=== PATIENT | female | born 1955 | race Caucasian/White ===

== ENCOUNTER 2016-11-23 16:17 | Emergency (ER) | payer OTHER ==
--- NOTE | 2016-11-23 17:39 | DIAGNOSTIC IMAGING REPORT ---
PROCEDURE: US VENOUS - RIGHT EXT INDICATION: SWELLING TECHNIQUE: Duplex sonography of the deep venous system in the right lower extremity was performed. Compression and augmentation techniques were used. COMPARISON: None. FINDINGS: Normal compression of the common femoral, superficial femoral, popliteal, peroneal, and posterior tibial veins. Normal augmentation. There is almost complete occlusion of the greater saphenous vein in the calf with little flow seen. IMPRESSION: 1. No evidence of a right lower extremity DVT 2. Superficial phlebitis of the greater saphenous vein in the calf
--- NOTE | 2016-11-23 18:56 | ED NURSING NOTES ---
Clinical Report - Nurses Merged With [facility] [place] [address] 11/23/2016 16:18 [id number] TRI[facility] Triage time 16:32. Acuity: LEVEL 3. Chief Complaint: RIGHT LOWER EXTREMITY SWELLING. 16:38 11/23/16. Alert. No acute distress. SEPSIS SCREEN: Sepsis Screen. Negative (no infection suspected/documented). STEFANIE COMA SCORE: Stefanie Coma Scale: 15- eyes open spontaneously (4); best verbal response- oriented x 4 (5); best motor response- obeys commands (6). --16:38 Jenna De La Vega R.N. 16:38 11/23/16. BP: 181/87. HR: 100. RR: 16. O2 saturation: 100%. Temp: 98.2 F. Pain level now 08/18. --16:38 Jenna De La Vega R.N. Weight: 72.5 kg stated. Height/Length: 61 inches Per Patient. BMI: 30.2. --16:36 Jenna De La Vega R.N. Medications None. --16:38 Jenna De La Vega R.N. Allergies No Known Drug Allergy. --16:38 Jenna De La Vega R.N. History Arrived by private vehicle. Historian: patient. Accompanied by family. Primary physician (robert). ( RLE swelling and aching x 2-3 weeks.). No injury occurred. This occurred (3 weeks ago). 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 SOCIAL HX: Heavy tobacco smoker (cigarette)- 1 pack per day. History of drug use: marijuana. No alcohol use. ABUSE ASSESSMENT: Abuse assessment: The patient was asked "Do you feel safe in your home?". No report of abuse. FALL RISK ASSESSMENT: Fall risk assessment completed. No fall risk identified. NUTRITIONAL RISK ASSESSMENT: The nutritional risk assessment revealed no deficiencies. FUNCTIONAL ASSESSMENT: Functional assessment: no impairments noted. LEARNING NEEDS ASSESSMENT: The learning needs assessment revealed no barriers. SKIN INTEGRITY ASSESSMENT: Skin integrity risk assessment completed. No skin integrity risk identified. --16:38 Jenna De La Vega R.N. PROBLEMS: no known problems. ADDITIONAL SURGERIES: no known surgeries. Interventions ID band on patient. To treatment room. --16:38 Jenna De La Vega R.N. PHYSICAL ASSESSMENT GENERAL / NEURO / PSYCH: Oriented X 4. Alert. Appears in no acute distress. EXTREMITIES: Extremity pulses are within normal limits. Neuro-vascular status intact to the extremity. Right leg: swelling. No erythema. Right foot: swelling. No erythema. SKIN: Skin is warm and dry. --16:39 Jenna De La Vega R.N. NURSING PROGRESS NOTES 16:39 11/23/16. The plan of care for this patient has been created. Extremity elevated. Patient gowned. Call light placed in reach. Bed placed in lowest position. Brakes of bed on. Patient ready for evaluation- chart flagged. --16:39 Jenna De La Vega R.N. ( ultrasound at bedside). --16:49 Jenna De La Vega R.N. Care transferred and report received (from Christy, JACQUE). --17:55 Andie Nova R.N. 18:39 11/23/2016 Lovenox (Enoxaparin Sodium) Subcutaneous 80 mg given. Given in the right abdomen. Allergies verified and confirmed 5 rights. --18:41 Jenna De La Vega R.N. ( pt educated on lovenox injections including subQ administration, sharps disposal, primary care follow up, bleeding precautions, site rotation, side effects, contraindications, and sx for which to be seen. Pt able to verbalize understanding and demonstrate appropriate sites for injection). --18:42 Jenna De La Vega R.N. 19:05 11/23/2016 Warfarin Sodium PO Tablets 10 mg given. Allergies verified and confirmed 5 rights. --19:15 Jenna De La Vega R.N. 19:00. ( extensive pt teaching on warfarin dosing, precautions and administration in conjunction with lovenox. Pt educated further on bleeding precautions, bleeding risks, INR monitoring, dietary restrictions and close follow up with PCP. Pt verbalizes understanding.). --19:20 Jenna De La Vega R.N. DISPOSITION / DISCHARGE 19:15. Departure time: 1914. Condition at departure: unchanged and stable. No learning barriers present. Discharge instructions provided and reviewed with the patient and spouse. Reviewed medication(s) side effects, precautions, dosing and course information. Prescription(s) given to the patient. Follow up contact number Ramila. Patient verbalized understanding. Written instructions provided in Italian. The patient was discharged by the physician social service assistant. She was discharged home and accompanied by spouse. She left the Emergency Department ambulatory and via private vehicle. Spouse driving. --19:21 Jenna De La Vega R.N. 19:20 11/23/16. BP: 151/86. HR: 84. RR: 16. O2 saturation: 97% on room air. Pain level now 0/10. --19:21 Jenna De La Vega R.N. Locked/Released at 11/28/2016 7:22 by Jenna De La Vega R.N.
--- NOTE | 2016-11-23 18:56 | ED CLINICAL REPORT ---
Clinical Report - Physicians/Mid Levels [facility] [address] [place] [address] 11/23/2016 16:18 [id number] Time Seen: 16:45 Apr 2016. Arrived- By private vehicle. Historian- patient. HISTORY OF PRESENT ILLNESS Chief Complaint: Injury to right leg and right knee. The injury happened just prior to arrival. Patient is experiencing mild pain. Patient denies injury to the head or neck. (patient reports pain and swelling to the right lower extremity over the last 2 weeks. Pain is independent of movement. Reports knee injury about 2 years previously. Reports some swelling to the posterior aspect of the knee, however extends into the calf. Denies history of DVT, prolonged recent immobilization, or surgery.). REVIEW OF SYSTEMS The patient complains of pain on weight bearing. All systems otherwise negative, except as recorded above. PAST HISTORY The patient has not had a prior injury to the same area. SOCIAL HISTORY Never smoker. No alcohol use or drug use. ADDITIONAL NOTES The nursing notes have been reviewed. PHYSICAL EXAM Vital Signs: 11/23/2016 16:38 BP: 181/87. HR: 100. RR: 16. O2 saturation: 100%. Temp: 98.2 F. Appearance: Alert. No acute distress. but apparent distress. Head: Head atraumatic. ENT: Ears normal. Nose normal. CVS: Normal heart rate and rhythm. Heart sounds normal. Respiratory: No respiratory distress. Breath sounds normal. No decreased air movement or chest wall injury. Skin: Skin intact. Skin warm. Normal skin color. Extremities: Right knee: mild tenderness located in the posterior knee. (Posteriorly.). No ecchymosis or deformity. Gait: Normal gait. Neuro, Vascular and Tendons: Sensation intact. Motor intact. Neuro: Oriented X 3. LABS, X-RAYS, AND EKG Laboratory Tests: PT with INR: (EMILIE: 11/23/2016 17:30) ( MsgRcvd 11/23/2016 18:43) Final results Test Result Flag Units (Reference) INR 1.0 (0.8-1.2) Low Intensity Therapy: INR 1.5-2.0 PT range 18.5-23.1Mod.Intensity Therapy: INR 2.0-3.0 PT range 23.1-31.5High Intensity Therapy: INR 2.5-3.5 PT range 27.4-35.5High Intensity Therapy 2: INR 3.0-4.0 PT range 31.5-39.3 APTT 30 SECONDS (24-34) . Note - Tests: (US VENOUS:IMPRESSION: 1. No evidence of a right lower extremity DVT 2. Superficial phlebitis of the greater saphenous vein in the calf Electronically Final signed by:Navi Sanchez MD 11/23/2016 5:39:46 PM). PROGRESS AND PROCEDURES Course of Care: concern of this occlusion becoming a DVT, this patient was treated, discussed care with Dr. Sanford, the emergency department. Patient to have close follow-up. Pt understands plan and agrees. Given lovenox/ warfarin in the ER. Patient is stable. Symptoms better. Patient/family counseled. Disposition: Discharged. CLINICAL IMPRESSION Deep venous thrombosis. Superficial Phlebitis of Great Saphenous Vein Complete Occlusion. INSTRUCTIONS (Have INR (Lab for warfarin) rechecked in 3-5 days Follow up please [facility]: Address: [address] [place] [address] [place] [id number] [address] Shine [address] [place], [place] [id number] [phone]). Prescription Medications: Lovenox 80 mg SQ. Administer every 12 hours for 7 days. Dispense fourteen (14) pre-filled syringes. No refills. Warfarin 2.5 mg: take 3 pills on the 18th, take 2 pills on the , take 2 pills on the , take 2 on the . HAVE INR re-checked. Dispense 10 pills. Understanding of the discharge instructions verbalized by patient. Follow-up with: Lola Mcgrath MD, Family Practice, , [facility], [address] [place] [address] Follow up. Call for the next available appointment. (Electronically signed by Rosalinda Pratt P.ASelene 11/23/2016 19:23)
--- NOTE | 2016-11-23 18:56 | ED ORDER SUMMARY ---
..... Patient: MARLON URRUTIA OrderSheet [facility] VisitID: [id number] [place] [address] 61y, F Registration Date/Time: 11/23/2016 ORDER SHEET Weight: 72.5 kg (stated) Allergies: No Known Drug Allergy GENERAL ORDERS: US Venous Right Urgent (16:38 11/23/2016 EKoroleva P.A.-C) (Ack 16:45 PWeiler ER Tech1) (17:54 KWilliams R.N.) PT with INR Urgent (17:24 11/23/2016 EKoroleva P.A.-C) (Ack 17:25 PWeiler ER Tech1) (17:32 PWeiler ER Tech1) PTT Urgent (17:24 11/23/2016 EKoroleva P.A.-C) (Ack 17:25 PWeiler ER Tech1) (17:32 PWeiler ER Tech1) MEDICATION ORDERS: Lovenox Subcut 80 mg (with teaching please) (18:11 11/23/2016 EKoroleva P.A.-C) (Ack 18:19 HKone R.N.) (18:41 KWilliams R.N.) - (warfarin 10 mg po now) (18:53 11/23/2016 EKoroleva P.A.-C) (19:15 KWilliams R.N.) IV FLUIDS: ORDER SHEET NOTES: [Electronically signed by Rosalinda PrattAMahi-C (19:23 11/23/2016)] [Electronically signed by Jenna De La Vega R.N. (07:22 11/28/2016)] [Electronically locked/signed by Jenna De La Vega R.N. (07:22 11/28/2016)]
--- NOTE | 2016-11-23 18:56 | ED CLINICAL REPORT ---
Clinical Report - Physicians/Mid Levels [facility] [address] [place] [address] 11/23/2016 16:18 [id number] Time Seen: 16:45 Apr 2016. Arrived- By private vehicle. Historian- patient. HISTORY OF PRESENT ILLNESS Chief Complaint: Injury to right leg and right knee. The injury happened just prior to arrival. Patient is experiencing mild pain. Patient denies injury to the head or neck. (patient reports pain and swelling to the right lower extremity over the last 2 weeks. Pain is independent of movement. Reports knee injury about 2 years previously. Reports some swelling to the posterior aspect of the knee, however extends into the calf. Denies history of DVT, prolonged recent immobilization, or surgery.). REVIEW OF SYSTEMS The patient complains of pain on weight bearing. All systems otherwise negative, except as recorded above. PAST HISTORY The patient has not had a prior injury to the same area. SOCIAL HISTORY Never smoker. No alcohol use or drug use. ADDITIONAL NOTES The nursing notes have been reviewed. PHYSICAL EXAM Vital Signs: 11/23/2016 16:38 BP: 181/87. HR: 100. RR: 16. O2 saturation: 100%. Temp: 98.2 F. Appearance: Alert. No acute distress. but apparent distress. Head: Head atraumatic. ENT: Ears normal. Nose normal. CVS: Normal heart rate and rhythm. Heart sounds normal. Respiratory: No respiratory distress. Breath sounds normal. No decreased air movement or chest wall injury. Skin: Skin intact. Skin warm. Normal skin color. Extremities: Right knee: mild tenderness located in the posterior knee. (Posteriorly.). No ecchymosis or deformity. Gait: Normal gait. Neuro, Vascular and Tendons: Sensation intact. Motor intact. Neuro: Oriented X 3. LABS, X-RAYS, AND EKG Laboratory Tests: PT with INR: (EMILIE: 11/23/2016 17:30) ( MsgRcvd 11/23/2016 18:43) Final results Test Result Flag Units (Reference) INR 1.0 (0.8-1.2) Low Intensity Therapy: INR 1.5-2.0 PT range 18.5-23.1Mod.Intensity Therapy: INR 2.0-3.0 PT range 23.1-31.5High Intensity Therapy: INR 2.5-3.5 PT range 27.4-35.5High Intensity Therapy 2: INR 3.0-4.0 PT range 31.5-39.3 APTT 30 SECONDS (24-34) . Note - Tests: (US VENOUS:IMPRESSION: 1. No evidence of a right lower extremity DVT 2. Superficial phlebitis of the greater saphenous vein in the calf Electronically Final signed by:Navi Sanchez MD 11/23/2016 5:39:46 PM). PROGRESS AND PROCEDURES Course of Care: concern of this occlusion becoming a DVT, this patient was treated, discussed care with Dr. Sanford, the emergency department. Patient to have close follow-up. Pt understands plan and agrees. Given lovenox/ warfarin in the ER. Patient is stable. Symptoms better. Patient/family counseled. Disposition: Discharged. CLINICAL IMPRESSION Deep venous thrombosis. Superficial Phlebitis of Great Saphenous Vein Complete Occlusion. INSTRUCTIONS (Have INR (Lab for warfarin) rechecked in 3-5 days Follow up please [facility]: Address: [address] [place] [address] [place] [id number] [address] Shine [address] [place], [place] [id number] [phone]). Prescription Medications: Lovenox 80 mg SQ. Administer every 12 hours for 7 days. Dispense fourteen (14) pre-filled syringes. No refills. Warfarin 2.5 mg: take 3 pills on the 18th, take 2 pills on the , take 2 pills on the , take 2 on the . HAVE INR re-checked. Dispense 10 pills. Understanding of the discharge instructions verbalized by patient. Follow-up with: Lola Mcgrath MD, Family Practice, , [facility], [address] [place] [address] Follow up. Call for the next available appointment. (Electronically signed by Rosalinda Pratt P.ASelene 11/23/2016 19:23)
--- NOTE | 2016-11-23 18:56 | ED ORDER SUMMARY ---
..... Patient: MARLON URRUTIA OrderSheet [facility] VisitID: [id number] [place] [address] 61y, F Registration Date/Time: 11/23/2016 ORDER SHEET Weight: 72.5 kg (stated) Allergies: No Known Drug Allergy GENERAL ORDERS: US Venous Right Urgent (16:38 11/23/2016 EKoroleva P.A.-C) (Ack 16:45 PWeiler ER Tech1) (17:54 KWilliams R.N.) PT with INR Urgent (17:24 11/23/2016 EKoroleva P.A.-C) (Ack 17:25 PWeiler ER Tech1) (17:32 PWeiler ER Tech1) PTT Urgent (17:24 11/23/2016 EKoroleva P.A.-C) (Ack 17:25 PWeiler ER Tech1) (17:32 PWeiler ER Tech1) MEDICATION ORDERS: Lovenox Subcut 80 mg (with teaching please) (18:11 11/23/2016 EKoroleva P.A.-C) (Ack 18:19 HKone R.N.) (18:41 KWilliams R.N.) - (warfarin 10 mg po now) (18:53 11/23/2016 EKoroleva P.A.-C) (19:15 KWilliams R.N.) IV FLUIDS: ORDER SHEET NOTES: [Electronically signed by Rosalinda PrattAMahi-C (19:23 11/23/2016)] [Electronically signed by Jenna De La Vega R.N. (07:22 11/28/2016)] [Electronically locked/signed by Jenna De La Vega R.N. (07:22 11/28/2016)]
--- NOTE | 2016-11-23 18:56 | ED NURSING NOTES ---
Clinical Report - Nurses [facility] [place] [address] 11/23/2016 16:18 [id number] TRIAGE Triage time 16:32. Acuity: LEVEL 3. Chief Complaint: RIGHT LOWER EXTREMITY SWELLING. 16:38 11/23/16. Alert. No acute distress. SEPSIS SCREEN: Sepsis Screen. Negative (no infection suspected/documented). STEFANIE COMA SCORE: Stefanie Coma Scale: 15- eyes open spontaneously (4); best verbal response- oriented x 4 (5); best motor response- obeys commands (6). --16:38 Jenna De La Vega R.N. 16:38 11/23/16. BP: 181/87. HR: 100. RR: 16. O2 saturation: 100%. Temp: 98.2 F. Pain level now 08/18. --16:38 Jenna De La Vega R.N. Weight: 72.5 kg stated. Height/Length: 61 inches Per Patient. BMI: 30.2. --16:36 Jenna De La Vega R.N. Medications None. --16:38 Jenna De La Vega R.N. Allergies No Known Drug Allergy. --16:38 Jenna De La Vega R.N. History Arrived by private vehicle. Historian: patient. Accompanied by family. Primary physician (robert). ( RLE swelling and aching x 2-3 weeks.). No injury occurred. This occurred (3 weeks ago). 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 SOCIAL HX: Heavy tobacco smoker (cigarette)- 1 pack per day. History of drug use: marijuana. No alcohol use. ABUSE ASSESSMENT: Abuse assessment: The patient was asked "Do you feel safe in your home?". No report of abuse. FALL RISK ASSESSMENT: Fall risk assessment completed. No fall risk identified. NUTRITIONAL RISK ASSESSMENT: The nutritional risk assessment revealed no deficiencies. FUNCTIONAL ASSESSMENT: Functional assessment: no impairments noted. LEARNING NEEDS ASSESSMENT: The learning needs assessment revealed no barriers. SKIN INTEGRITY ASSESSMENT: Skin integrity risk assessment completed. No skin integrity risk identified. --16:38 Jenna De La Vega R.N. PROBLEMS: no known problems. ADDITIONAL SURGERIES: no known surgeries. Interventions ID band on patient. To treatment room. --16:38 Jenna De La Vega R.N. PHYSICAL ASSESSMENT GENERAL / NEURO / PSYCH: Oriented X 4. Alert. Appears in no acute distress. EXTREMITIES: Extremity pulses are within normal limits. Neuro-vascular status intact to the extremity. Right leg: swelling. No erythema. Right foot: swelling. No erythema. SKIN: Skin is warm and dry. --16:39 Jenna De La Vega R.N. NURSING PROGRESS NOTES 16:39 11/23/16. The plan of care for this patient has been created. Extremity elevated. Patient gowned. Call light placed in reach. Bed placed in lowest position. Brakes of bed on. Patient ready for evaluation- chart flagged. --16:39 Jenna De La Vega R.N. ( ultrasound at bedside). --16:49 Jenna De La Vega R.N. Care transferred and report received (from Christy, JACQUE). --17:55 Andie Nova R.N. 18:39 11/23/2016 Lovenox (Enoxaparin Sodium) Subcutaneous 80 mg given. Given in the right abdomen. Allergies verified and confirmed 5 rights. --18:41 Jenna De La Vega R.N. ( pt educated on lovenox injections including subQ administration, sharps disposal, primary care follow up, bleeding precautions, site rotation, side effects, contraindications, and sx for which to be seen. Pt able to verbalize understanding and demonstrate appropriate sites for injection). --18:42 Jenna De La Vega R.N. 19:05 11/23/2016 Warfarin Sodium PO Tablets 10 mg given. Allergies verified and confirmed 5 rights. --19:15 Jenna De La Vega R.N. 19:00. ( extensive pt teaching on warfarin dosing, precautions and administration in conjunction with lovenox. Pt educated further on bleeding precautions, bleeding risks, INR monitoring, dietary restrictions and close follow up with PCP. Pt verbalizes understanding.). --19:20 Jenna De La Vega R.N. DISPOSITION / DISCHARGE 19:15. Departure time: 1914. Condition at departure: unchanged and stable. No learning barriers present. Discharge instructions provided and reviewed with the patient and spouse. Reviewed medication(s) side effects, precautions, dosing and course information. Prescription(s) given to the patient. Follow up contact number Ramila. Patient verbalized understanding. Written instructions provided in Czech. The patient was discharged by the physician prosthetic assistant. She was discharged home and accompanied by spouse. She left the Emergency Department ambulatory and via private vehicle. Spouse driving. --19:21 Jenna De La Vega R.N. 19:20 11/23/16. BP: 151/86. HR: 84. RR: 16. O2 saturation: 97% on room air. Pain level now 0/10. --19:21 Jenna De La Vega R.N. Locked/Released at 11/28/2016 7:22 by Jenna De La Vega R.N.
--- NOTE | 2016-11-28 07:23 | ED MED RECONCILIATION SUMMARY ---
Patient: MARLON URRUTIA Medication Reconciliation Report Located [facility] VisitID: [id number] [place] [address] 61y, F Registration Date/Time: 11/23/2016 Weight: 72.5 kg Height/Length: 61 in. BMI: 30.2 ALLERGIES: No Known Drug Allergy The patient's Home Medications are listed below: NONE. The source(s) of the original Home Medication information: Not obtained. The following Medications were given to the patient in the Emergency Department: Lovenox [Subcutaneous] Subcutaneous 80 mg, administered: 11/23/2016 6:39:00 PM Warfarin Sodium [PO] PO 10 mg, administered: 11/23/2016 7:05:00 PM The following Medications were prescribed to the patient: Warfarin 2.5 mg: take 3 pills on the 18th, take 2 pills on the , take 2 pills on the , take 2 on the . HAVE INR re-checked. Dispense 10 pills. -- Rosalinda Pratt, P.A.-Da Lovenox 80 mg SQ. Administer every 12 hours for 7 days. Dispense fourteen (14) pre-filled syringes. No refills. -- Rosalinda Pratt, P.A.-C
--- NOTE | 2016-11-28 07:23 | ED MED RECONCILIATION SUMMARY ---
Patient: MARLON URRUTIA Medication Reconciliation Report VisitID: [id number] [place] [address] 61y, F Registration Date/Time: 11/23/2016 Weight: 72.5 kg Height/Length: 61 in. BMI: 30.2 ALLERGIES: No Known Drug Allergy The patient's Home Medications are listed below: NONE. The source(s) of the original Home Medication information: Not obtained. The following Medications were given to the patient in the Emergency Department: Lovenox [Subcutaneous] Subcutaneous 80 mg, administered: 11/23/2016 6:39:00 PM Warfarin Sodium [PO] PO 10 mg, administered: 11/23/2016 7:05:00 PM The following Medications were prescribed to the patient: Warfarin 2.5 mg: take 3 pills on the 18th, take 2 pills on the , take 2 pills on the , take 2 on the . HAVE INR re-checked. Dispense 10 pills. -- Rosalinda Pratt, P.A.-Da Lovenox 80 mg SQ. Administer every 12 hours for 7 days. Dispense fourteen (14) pre-filled syringes. No refills. -- Rosalinda Pratt, P.A.-C
--- NOTE | 2016-11-28 07:23 | ED DISCHARGE INSTRUCTIONS ---
Patient: MARLON URRUTIA General Instructions [facility] VisitID: [id number] [address], [place] [address] 61y, F Registration Date/Time: 11/23/2016 Deep venous thrombosis. Superficial Phlebitis of Great Saphenous Vein Complete Occlusion. INSTRUCTIONS (Have INR (Lab for warfarin) rechecked in 3-5 days Follow up please [facility]: Address: [address], [place] [id number] [address]. Shine [address] [place] [address] [phone] Prescription Medications: Lovenox 80 mg SQ. Administer every 12 hours for 7 days. Dispense fourteen (14) pre-filled syringes. No refills. Warfarin 2.5 mg: take 3 pills on the 18th, take 2 pills on the 19th, take 2 pills on the , take 2 on the . HAVE INR re-checked. Dispense 10 pills. Understanding of the discharge instructions verbalized by patient. Follow-up with: Lola Mcgrath MD, Family Practice, , [facility], [address] [place] [address] Follow up. Call for the next available appointment. (Electronically signed by Rosalinda Pratt P.A.-C 11/23/2016 19:23)
--- NOTE | 2016-11-28 07:23 | ED DISCHARGE INSTRUCTIONS ---
Patient: MARLON URRUTIA General Instructions VisitID: [id number] [address], [place] [address] 61y, F Registration Date/Time: 11/23/2016 Deep venous thrombosis. Superficial Phlebitis of Great Saphenous Vein Complete Occlusion. INSTRUCTIONS (Have INR (Lab for warfarin) rechecked in 3-5 days Follow up please [facility]: Address: [address], [place] [id number] Dr. Shine [address] [place] [address] [phone]). Prescription Medications: Lovenox 80 mg SQ. Administer every 12 hours for 7 days. Dispense fourteen (14) pre-filled syringes. No refills. Warfarin 2.5 mg: take 3 pills on the 18th, take 2 pills on the 19th, take 2 pills on the , take 2 on the . HAVE INR re-checked. Dispense 10 pills. Understanding of the discharge instructions verbalized by patient. Follow-up with: Lola Mcgrath MD, Family Practice, , [facility], [address] [place] [address] Follow up. Call for the next available appointment. (Electronically signed by Rosalinda Pratt P.A.-C 11/23/2016 19:23)
--- NOTE | 2016-11-28 07:23 | ED MAR SUMMARY ---
..... Medication Administration Record [facility] [address] [place] [address] Patient: MARLON URRUTIA Visit ID: [id number], F Weight: 72.5 kg Height/Length: 61 in BMI: 30.2 ALLERGIES: No Known Drug Allergy Given 18:39 11/23/2016 Jenna De La Vega R.N. Medication Administered: LOVENOX [SUBCUTANEOUS] (ENOXAPARIN SODIUM), Dose: 80 mg Subcutaneous. Medication Ordered: Lovenox Subcut 80 mg (with teaching please). Given 19:05 11/23/2016 Jenna De La Vega RMahiNMahi Medication Administered: WARFARIN SODIUM [PO], Dose: 10 mg Tablets PO. Medication Ordered: - (warfarin 10 mg po now).
--- NOTE | 2016-11-28 07:23 | ED MAR SUMMARY ---
..... Medication Administration Record [facility] [address] [place] [address] Patient: MARLON URRUTIA Visit ID: [id number], F Weight: 72.5 kg Height/Length: 61 in BMI: 30.2 ALLERGIES: No Known Drug Allergy Given 18:39 11/23/2016 Jenna De La Vega R.N. Medication Administered: LOVENOX [SUBCUTANEOUS] (ENOXAPARIN SODIUM), Dose: 80 mg Subcutaneous. Medication Ordered: Lovenox Subcut 80 mg (with teaching please). Given 19:05 11/23/2016 Jenna De La Vega RMahiNMahi Medication Administered: WARFARIN SODIUM [PO], Dose: 10 mg Tablets PO. Medication Ordered: - (warfarin 10 mg po now).
== END 2016-11-23 19:15 | disposition home or self-care (01) ==
LOC: ED SRH 16:17
DX: I82.401 Acute embolism and thrombosis of unspecified deep veins of right lower extremity (principal); I82.811 Embolism and thrombosis of superficial veins of right lower extremity

== ENCOUNTER 2017-01-15 14:47 | Outpatient (CLI) | payer OTHER ==
--- NOTE | 2017-01-15 15:24 | DIAGNOSTIC IMAGING REPORT ---
PROCEDURE: XR KNEE 3 VIEWS - RIGHT INDICATION: SWELLING OF RIGHT KNEE JOINT TECHNIQUE: Three views. COMPARISON: None. FINDINGS: Osseous structures and joint spaces are normal. IMPRESSION: 1. Normal right knee.
--- NOTE | 2017-01-15 16:52 | DIAGNOSTIC IMAGING REPORT ---
PROCEDURE: US VENOUS - RIGHT EXT INDICATION: RIGHT LEG PAIN, HX short saphenous thrombophlebitis. TECHNIQUE: Duplex sonography of the deep venous system in the right lower extremity was performed. Compression and augmentation techniques were used. COMPARISON: 11/23/2016 and x-rays performed the same day of the right knee. FINDINGS: Each interrogated segment of deep vein from the common femoral vein into the calf veins demonstrates normal compressibility, augmentation and/or color Doppler flow without filling defect. The greater saphenous vein in the calf is normal caliber and compressible. A compressible, normal caliber, completely patent short saphenous vein was visualized. Connection to the popliteal vein was imaged. No evidence of chronic thrombophlebitis in the short saphenous vein. Medial to the short saphenous, there is an elongated, irregular, unencapsulated fluid collection superficial and within calf muscle corresponding to the finding seen previously. Proximally there are a few internal echoes. Distally, there is expansile, mildly hyperechoic material without vascularity. This collection can be followed to the knee joint. Suprapatellar joint effusion was present. IMPRESSION: 1. Normal, patent, compressible greater and lesser saphenous veins without evidence of acute, subacute, or residual thrombus. 2. 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 MRI of the right knee for further evaluation of chronic injury is recommended. 3. No evidence of deep venous thrombosis. 4. Discussed with Dr. Thomas.
== END 2017-01-15 23:00 | disposition home or self-care (01) ==
LOC: XR SRH 14:47
DX: M25.461 Effusion, right knee (principal)